=== PATIENT | female | born 1960 | race African-American/Black ===

== ENCOUNTER 2020-06-06 09:03 | Inpatient (IN) | payer MEDICAID, OTHER ==
[~2020-06-06] VITALS: Ht 162.6 cm; Wt 75.4 kg
[~2020-06-06 09:03] MED LIST: DIVA-112 PO; RISP3TAB35 PO
[2020-06-07] MEDS ORDERED: 0.9% SODIUM CHLORIDE 10 ML SYRINGE IVP PRN (00:15)
[2020-06-07] MEDS ORDERED: ONDANSETRON HCL 4 MG/2 ML VIAL IVP PRN (00:15)
[2020-06-07] MEDS ORDERED: ACETAMINOPHEN 325 MG TABLET PO PRN (00:15)
[2020-06-07 09:01] LABS: COVID AG,FIA SOURCE NASOPHARYNGEAL
[2020-06-07] MEDS ORDERED: ZOLPIDEM TARTRATE 10 MG TABLET PO PRN (11:00)
[2020-06-07] MEDS ORDERED: LORazepam 2 MG TABLET PO PRN (11:00)
[2020-06-07] MEDS ORDERED: HALOPERIDOL 5 MG TABLET PO PRN (11:00)
[2020-06-07] MEDS ORDERED: INFLUENZA VIRUS VACCINE QVS 2020-21 (6MO+)/PF 60 MCG/0.5 ML SYRINGE IM ONE (12:00)
[2020-06-07] MEDS ORDERED: PNEUMOCOCCAL VACCINE POLYVALENT 0.5 ML VIAL [PPSV23] IM ONE (12:30)
[2020-06-07 13:58] VITALS: BP 144/90
[2020-06-07 16:00] VITALS: BP 130/68
[2020-06-07] MEDS: DIVALPROEX SODIUM 500 MG DR TABLET PO SCH (20:24)
[2020-06-07] MEDS: RisperiDONE 2 MG TABLET PO SCH (20:24)
[2020-06-08] MEDS ORDERED: MAG HYDROX/AL HYDROX/SIMETH ES 30 ML SUSPENSION UDCUP PO PRN (08:15)
[2020-06-08] MEDS ORDERED: MAGNESIUM HYDROXIDE SUSPENSION 30 ML UDCUP PO PRN (08:15)
[2020-06-08] MEDS ORDERED: ACETAMINOPHEN 325 MG TABLET PO PRN (08:15)
[2020-06-08] MEDS ORDERED: PETROLATUM,WHITE 28 GM JELLY TP PRN (08:15)
[2020-06-08] MEDS ORDERED: DOCUSATE SODIUM 100 MG CAPSULE PO PRN (08:15)
[2020-06-08] MEDS ORDERED: IBUPROFEN 400 MG TABLET PO PRN (08:15)
[2020-06-08] MEDS ORDERED: ONDANSETRON HCL 4 MG TABLET PO PRN (08:15)
[2020-06-08] MEDS ORDERED: ALBUTEROL SULFATE HFA 90 MCG/PUFF 8 GM INHALER IH PRN (08:15)
[2020-06-08] MEDS ORDERED: NICOTINE 14 MG/24 HOUR PATCH TD PRN (08:15)
[2020-06-08] MEDS ORDERED: LOPERAMIDE HCL 2 MG CAPSULE PO PRN (08:15)
[2020-06-08] MEDS ORDERED: CloNIDine HCL 0.1 MG TABLET PO PRN (08:15)
[2020-06-08] MEDS ORDERED: GuaiFENesin/D-METHORPHAN [SUGAR-FREE] 200-20MG/10 ML SYRUP UDCUP PO PRN (08:15)
[2020-06-08] MEDS: RisperiDONE 2 MG TABLET PO SCH ×2 (09:00→20:15)
[2020-06-08] MEDS: DIVALPROEX SODIUM 500 MG DR TABLET PO SCH ×2 (09:00→20:15)
[2020-06-08 09:24] VITALS: BP 125/67
[2020-06-08 16:00] VITALS: BP 131/75
[2020-06-09] MEDS: RisperiDONE 2 MG TABLET PO SCH ×2 (09:00→20:11)
[2020-06-09] MEDS: DIVALPROEX SODIUM 500 MG DR TABLET PO SCH ×2 (09:00→20:11)
[2020-06-09 09:46] VITALS: BP 111/75
[2020-06-10] MEDS: RisperiDONE 2 MG TABLET PO SCH ×2 (09:00→20:56)
[2020-06-10] MEDS: DIVALPROEX SODIUM 500 MG DR TABLET PO SCH ×2 (09:00→20:56)
[2020-06-10 10:02] VITALS: BP 94/69
[2020-06-10 16:05] VITALS: BP 120/67
[2020-06-11] MEDS: RisperiDONE 2 MG TABLET PO SCH ×2 (09:00→20:54)
[2020-06-11] MEDS: DIVALPROEX SODIUM 500 MG DR TABLET PO SCH ×2 (09:00→20:54)
[2020-06-11 09:43] VITALS: BP 131/82
[2020-06-11 16:55] VITALS: BP 142/80
[2020-06-12 04:11] VITALS: BP 134/86
[2020-06-12] MEDS: RisperiDONE 2 MG TABLET PO SCH ×3 (09:00→21:00)
[2020-06-12] MEDS: DIVALPROEX SODIUM 500 MG DR TABLET PO SCH ×3 (09:00→21:00)
[2020-06-12 16:22] VITALS: BP 142/89
[2020-06-13 08:17] VITALS: BP 101/69
[2020-06-13] MEDS: RisperiDONE 2 MG TABLET PO SCH (08:44)
[2020-06-13] MEDS: DIVALPROEX SODIUM 500 MG DR TABLET PO SCH (08:45)
== END 2020-06-13 15:00 | disposition home or self-care (01) | DRG 750 ==
LOC: EDBD 09:03 → EMS 09:03 → 3EI 06-07 10:59 → EDBD 06-07 10:59
PROC: 3E0234Z Introduction of Serum, Toxoid and Vaccine into Muscle, Percutaneous Approach (ICD-10-PCS; principal; 2020-06-07)
PROC: 3E02340 Introduction of Influenza Vaccine into Muscle, Percutaneous Approach (ICD-10-PCS; 2020-06-07)
DX: F25.0 Schizoaffective disorder, bipolar type (principal); G89.29 Other chronic pain; I10 Essential (primary) hypertension; G93.40 Encephalopathy, unspecified; Z20.828 Contact with and (suspected) exposure to other viral communicable diseases; M54.9 Dorsalgia, unspecified; K21.9 Gastro-esophageal reflux disease without esophagitis; Z79.899 Other long term (current) drug therapy; Z87.891 Personal history of nicotine dependence; Z23 Encounter for immunization
CPT/HCPCS: 87426; Z7502; Z7610

== ENCOUNTER 2021-03-30 09:30 | Emergency (ER) | payer MEDICAID ==
[~2021-03-30] VITALS: Ht 162.6 cm; Wt 77.3 kg
[2021-03-30 12:26] VITALS: BP 100/66
== END 2021-03-30 12:36 | disposition home or self-care (01) ==
LOC: EMS 09:30
DX: S60.222A Contusion of left hand, initial encounter (principal); S20.212A Contusion of left front wall of thorax, initial encounter; K21.9 Gastro-esophageal reflux disease without esophagitis; I10 Essential (primary) hypertension; G89.29 Other chronic pain; Z87.891 Personal history of nicotine dependence; W50.1XXA Accidental kick by another person, initial encounter; Y93.89 Activity, other specified; Y92.89 Other specified places as the place of occurrence of the external cause; Y99.8 Other external cause status
CPT/HCPCS: 71101; 99284; 73130-TC; Z7502